=== PATIENT | male | born 1945 | race Caucasian/White ===

== ENCOUNTER → 2019-03-01 | Outpatient (CLI) | payer OTHER, MEDICARE | LOC: BRMIMAGING 13:42 | PROVIDERS: ATTEND Internal Medicine Infectious Disease | DX: M51.36 Other intervertebral disc degeneration, lumbar region (principal); M41.86 Other forms of scoliosis, lumbar region; M89.38 Hypertrophy of bone, other site | CPT/HCPCS: 72100-PO ==